=== PATIENT | male | born 1965 | race Two or more races ===

== ENCOUNTER → 2019-04-03 | Outpatient (CLI) | payer OTHER ==
[~2019-04-03] MED LIST: NO MEDS
--- NOTE | 2019-04-03 08:52 | RAD ---
ABDOMEN COMPLETE History: Elevated liver enzymes Comparison: None. Findings: Multiple sonographic images of the abdomen are submitted. There is no abnormality of the visualized pancreas. There is segmental visualization of the inferior vena cava. Abdominal aortic caliber is within normal limits up to 1.9 cm. There is coarsening of the hepatic echotexture. Right lobe of liver measured 18 cm longitudinal. Right kidney measured 10.2 x 5 x 5.8 cm, no hydronephrosis. Left kidney measured 11.9 x 5.2 x 6.6 cm, no hydronephrosis. Spleen measured 9.6 cm. Gallbladder is present without intraluminal abnormality, wall thickening, pericholecystic fluid. Common bile duct is within normal limits at 0.3 cm. Impression: 1. There is coarsening of hepatic echotexture likely due to steatosis. No other significant abnormality is demonstrated. Electronically signed by: Don Kelsey MD (04/03/2019 8:49 AM) [id number]
== END | disposition home or self-care (01) ==
LOC: US 06:19
PROVIDERS: ATTEND Family Medicine
DX: K76.0 Fatty (change of) liver, not elsewhere classified (principal); K76.89 Other specified diseases of liver
CPT/HCPCS: 76700